=== PATIENT | male | born 1965 | race Caucasian/White ===

== ENCOUNTER 2022-08-27 09:57 | Day surgery (SDC) | payer OTHER ==
[2022-08-21 16:38] LABS: Absolute Lymphocytes (CBC) 2.9 K/uL (0.7-4.9); Hematocrit 44.6 % (39.6-49.0); Lymphocytes % 31.9 % (15.3-44.8); MCV 90.8 fL (80-100); MPV 7.9 fL (7.6-11.3); RBC Red Blood Cell Count 4.91 M/uL (4.33-5.43)
--- NOTE | 2022-08-21 16:50 | RAD REPORT ---
EXAM DESCRIPTION: Swetha Causey (2 Views)08/21/2022 4:28 pm CLINICAL HISTORY: Preop for hernia repair COMPARISON: None FINDINGS: The lungs appear clear of acute infiltrate. The heart is normal size IMPRESSION: No acute abnormalities displayed
[2022-08-21 16:55] LABS: Potassium 3.9 mEq/L (3.5-5.1)
--- NOTE | 2022-08-22 10:12 | EKG ---
Test Date: 2022-08-21 Test Time: 16:11:52 [facility] Director: EM MEASUREMENT RESULTS: Intervals: Rate: 83 HI: 160 QRSD: 90 QT: 366 QTc: 430 [place]: P: 55 HI: 160 QRS: 6 T: 58 INTERPRETIVE STATEMENTS: Normal sinus rhythm with sinus arrhythmia Normal ECG No previous ECG available for comparison Electronically Signed On 08-22-22 10:11:54 CDT by Moy Jenkins
[2022-08-27] MEDS ORDERED: CEFAZOLIN SODIUM 1 GM/VIAL ONE (10:27)
[2022-08-27] MEDS ORDERED: Ringers Lactate 1,000 ML IV ONE (10:28)
[2022-08-27] MEDS ORDERED: FENTANYL CITR 100 MCG/2 ML ONE (12:02)
[2022-08-27] MEDS ORDERED: propofoL 200 MG/20 ML VIAL IV ONE (12:03)
[2022-08-27] MEDS ORDERED: MIDAZOLAM HCL 2 MG/2 ML INJ ONE ×2 (12:04→13:45)
[2022-08-27] MEDS ORDERED: ROCURONIUM 50 MG/5 ML VIAL IV ONE (12:04)
[2022-08-27] MEDS ORDERED: ONDANSETRON 4 MG/2 ML VIAL ONE (12:05)
[2022-08-27] MEDS ORDERED: LIDOCAINE 2% MPF 5 ML VIAL ONE (12:05)
[2022-08-27] MEDS: BUPIVACAINE 0.5% PF 10 ML VIAL ONE ×4 (12:41→12:49)
[2022-08-27] MEDS ORDERED: dexAMETHasone 4 MG/ML VIAL ONE (12:45)
[2022-08-27] MEDS ORDERED: KETOROLAC 30 MG/ML INJ ONE (13:23)
[2022-08-27] MEDS ORDERED: GLYCOPYRROLATE 0.2 MG/ML SYR ONE (13:23)
[2022-08-27] MEDS ORDERED: NEOSTIGMINE 1 MG/ML -10 ML VIAL ONE (13:23)
[2022-08-27] MEDS ORDERED: MEPERIDINE HCL 25 MG/ML SYR ONE (13:30)
[2022-08-27] MEDS: HYDROMORPHONE HCL 1 MG/ML INJ ONE ×2 (14:11→14:20)
[2022-08-27] MEDS ORDERED: TAMSULOSIN 0.4 MG SR CAP ONE (15:16)
[2022-08-27] MEDS ORDERED: HYDROCODONE/APAP 5/325 MG TAB ONE (15:20)
[2022-08-27 16:16] VITALS: BP 154/89; TEMP 97.4; O2SAT 100
--- NOTE | 2022-09-01 14:22 | OP ---
Date of Procedure: 08/27/2022 Surgeon: Danny Alvarenga MD Insurance Processor: None. Preoperative Diagnosis: Bilateral tender inguinal hernias. Postoperative Diagnosis: Bilateral tender inguinal hernias. Procedure: Laparoscopic repair of bilateral inguinal hernias with mesh. Complications: None. Anesthesia: General plus local. Implant: 3D mesh. Indication: This is the case of a male, who comes to us with bilateral inguinal hernias. The benefi ts, alternatives, and risks of laparoscopic repair versus open repair of laparoscopic inguinal hernia with mesh fully explained, which include, but not limited to infection, bleeding, damage to adjacent structures, anesthesia complication, recurrence, chronic pain, chronic numbness, SC, and even . He also understands this may not relieve any symptoms. He might need more than one surgical interv ention. He understood, signed a consent. Procedure In Detail: The patient was brought to the operating room, placed in supine position. Anes thesia was done without complication. Abdominal area was prepped and draped in the usual sterile fas hion. Marcaine 0.5% was injected for local anesthetic followed by sharp incision of the skin in the periumbilical region. This was after time-out. The incision was carried down until we find the ante rior rectus sheath. The anterior rectus sheath then was opened and muscle retracted laterally to exp ose the posterior rectus sheath. The extraperitoneal space was gently developed with the help of jason nt dissection and a balloon-tipped trocar was placed in the working space, directed toward the pubic symphysis under direct visualization. A laparoscope was placed in that area and the balloon was visu alized and the balloon was inflated to create the extraperitoneal space. When this was deflated, rem addis from the working space. Then, we insufflated the area. A camera was placed back and then we pr oceeded then to under direct visualization put a 5 mm trocar at the area just above the pubis symphys is and another penitentiary between the first and the second 1. The preperitoneal space was further devel oped by exposing the inferior epigastric vessels keeping them anterior. The Bala ligament was diss ected laterally to the junction with the iliac veins. The dissection continued inferiorly to the omaira opubic tract avoiding damage to the femoral branch of the genitofemoral nerve and the lateral femoral cutaneous nerve. The cord structures were carefully skeletonized. The sac was identified and reduc ed by gentle traction. The cord structures were preserved at all times. The sac was reduced into th e peritoneal cavity. At that moment, we proceeded to go to the opposite side and we did the same thi ng by exposing the inferior epigastric vessels keeping them anterior. We identified the Bala ligam ents and dissected laterally to the junction with the iliac veins. The dissection continued once aga in inferiorly to the iliopubic tract avoiding damage to the same 2 nerves. The hernia sac was identi fied once again, mobilized from the cord structures and reduced into the peritoneal cavity. At that moment, I proceeded to introduce a 3D mesh on the working space through the trocar site to cover dire ct and indirect spaces. We proceeded to secure that with SorbaFix fixation device lateral and superi or to the iliopubic tract and inferior and medial to the Bala ligament. Then, after that, we proce eded to go to the opposite side and we proceeded to introduce another piece of mesh and fixated that using the same technique. After ensuring adequate hemostasis, we put some local anesthetic in that a zarina and then after that, we deflated the area, closed the anterior rectus sheath with #1 Vicryl and c losed the skin in a subcuticular fashion. Sponge count, instrument counts correct. The patient murray rated the procedure well. The patient was sent to recovery in stable condition. PURNIMA/DEVIKA Voice ID: [id number] Report ID: [id number]
--- NOTE | 2022-09-01 14:28 | DS ---
Date of Discharge: 08/27/2022 Diagnosis: Laparoscopic inguinal hernias, bilateral. Procedure: Laparoscopic repair of bilateral inguinal hernias with mesh. Disposition: Home. Activity: As tolerated. No heavy lifting. Plan: Follow up in my office in 1 week. Call for appointment at [phone]. Keep area dry for 48 bridget rs, then may shower. Cold compress to the bilateral inguinal regions. PURNIMA/DEVIKA Voice ID: [id number] Report ID: [id number]
== END 2022-08-27 15:55 | disposition home or self-care (01) ==
LOC: OR 09:57
PROVIDERS: ATTEND Surgery
PROC: 0YUA4JZ Supplement Bilateral Inguinal Region with Synthetic Substitute, Percutaneous Endoscopic Approach (ICD-10-PCS; principal; 2022-08-27 11:15)
DX: K40.20 Bilateral inguinal hernia, without obstruction or gangrene, not specified as recurrent (principal)
CPT/HCPCS: 93005; 85025; 80048; 36415; 84153; 71046; 49650; J2704; J1100; J2710; J2001; J2250; J3010; J2175; J1170; J2405; J7120; J0690